=== PATIENT | female | born 1945 | race Caucasian/White ===

== ENCOUNTER 2017-08-07 22:28 | Emergency (ER) | payer OTHER ==
[~2017-08-07] VITALS: Ht 157.5 cm; Wt 72.6 kg
[~2017-08-07 22:28] MED LIST: BIOTIN5 M1 PO; CALCIUM 500 +1 EAC5 PO; ESCITALOPRAM OXA5 MG PO; FLUTICASONE PRO16 GM NASB; JARDIANCE25 M1 PO; LOSARTAN-HCTZ1 EAC2 PO; METFORMIN HCL500 M4 PO; METOPROLOL SUCC25 M1 PO; MULTIVITAMINS1 EAC8 PO; NORFLEX100 MG PO; SIMVASTATIN40 M1 PO; SYMBICORT 80-10.2 GM INH; SYNTHROID150 MCG PO; VITAMIN D1000 UNIT PO
[2017-08-07 22:34] VITALS: BP 156/76
--- NOTE | 2017-08-07 22:44 | ED SKIN/ALLERGY COMPLAINT ---
History of Present Illness General Chief Complaint: Animal/Insect Bite Stated Complaint: PT HAS POSSIBLE TICK ON THE BACK OF THE HEAD Source: patient Exam Limitations: no limitations Vital Signs & Intake/Output Vital Signs & Intake/Output Vital Signs Date Time Temp Pulse Resp B/P B/P Pulse O2 O2 Flow FiO2 Mean Ox Delivery Rate 08/07 2234 97.7 69 18 156/76 95 Room Air Allergies Coded Allergies: Sulfa (Sulfonamide Antibiotics) (Severe, NUMBNESS 08/26/15) Reconcile Medications Biotin 5 MG CAPSULE 1 CAP PO BID SUPPLEMENT (Reported) Budesonide/Formoterol Fumarate (Symbicort 80-4.5 Mcg Inhaler) 10.2 GM HFA.AER.AD 2 PUF INH BID BREATHING PROBLEMS (Reported) Calcium Carbonate/Vitamin D3 (Calcium 500 + D Tablet) 1 EACH TABLET 1 TAB PO BID SUPPLEMENT (Reported) Cholecalciferol (Vitamin D3) (Vitamin D) 1,000 UNIT TABLET 1 TAB PO DAILY SUPPLEMENT (Reported) Empagliflozin (Jardiance) 25 MG TABLET 1 TAB PO DAILY DIABETES (Reported) Escitalopram Oxalate 5 MG TABLET 1 TAB PO DAILY DEPRESSION (Reported) Fluticasone Propionate 16 GM SPRAY.SUSP 2 SPRAY NASB DAILY ALLERGIES ( Reported) Levothyroxine Sodium (Synthroid) 150 MCG TABLET 1 TAB PO DAILY AC THYROID ( Reported) Losartan/Hydrochlorothiazide (Losartan-Hctz 100-25 MG Tab) 1 EACH TABLET 1 TAB PO DAILY HEART (Reported) Metformin HCl (Metformin HCl ER) 500 MG TAB.ER.24H 1 TAB PO BID DIABETES ( Reported) Metoprolol Succinate 25 MG TAB.ER.24H 1 TAB PO DAILY HEART (Reported) Multivitamin (Multivitamins) 1 EACH CAPSULE 1 TAB PO DAILY SUPPLEMENT ( Reported) Simvastatin (Simvastatin*) 40 MG TABLET 1 TAB PO QPM CHOLESTEROL (Reported) Triage Note: PT TO TRIAGE STATING "I THINK I HAVE A TICK ON MY HEAD." PER PT THOUGHT IT WAS A SCAB, BUT SAID IT LOOKS LIKE A TICK. PT STATES SHE HAS 2 DOGS "SO IT'S POSSIBLE." Triage Nurses Notes Reviewed? yes Onset: Gradual Duration: day(s): (1) Timing: no prior history Severity: mild Location: HEAD Possible Factors: insect bite No Modifying Factors: none HPI: Patient is a 71-year-old female presenting to the emergency Department chief complaint of tick bite to scalp. Patient reports that she felt something on her scalp earlier today and her thought it looked like a scab. She knows that it increased in size throughout the day and he looked again and said I could take. Patient has 2 dogs. Denies any fevers or chills. No rashes. Denies any nausea vomiting chest pain shortness of breath or palpitations. No history of Lyme disease in the past. (Jade Guerin) Past History Travel History Traveled to [place] past 21 day No Medical History Any Pertinent Medical History? 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 No (Jade Guerin) Review of Systems Review of Systems Constitutional: Reports: no symptoms. Comments Review of systems: See HPI, All other systems negative. Constitutional, no chills fever or weight loss HEENT: No visual changes no sore throat no congestion Cardiovascular: No chest pain ,palpitation Skin, no jaundice no rashes Respiratory: No dyspnea cough sputum or hemoptysis GI: No nausea no vomiting Muscle skeletal: no back pain, no neck pain, Neurologic: No numbness no headaches Immunology: No splenectomy or history of AIDS (Jade Guerin) Physical Exam Physical Exam General Appearance: well developed/nourished, no apparent distress, alert, awake , comfortable Comments: Well-developed well-nourished person in no acute distress HEENT: Atraumatic, normocephalic. Engorged tick noted in the right parietal scalp. No surrounding erythema or edema. Neck: Normal inspection Respiratory: No respiratory distress. Neuro: Alert oriented x3 Skin: No appreciable rash on exposed skin, skin is warm and dry. Psych: Mood and affect is normal, memory and judgment is normal. (Jade Guerin) Progress Differential Diagnosis: lYME DISEASE, TICK BITE, CELLULITIS Plan of Care: Orders Procedure Date/time Status LYME TITRE 08/07 2241 Active Laboratory Tests 08/07/17 2303: Lyme Disease Antibody Pending Take removed with tweezers. Completely removed. Patient given a one-time dose of doxycycline because we don't know how long the tick was there. Patient asymptomatic. Lyme titer drawn, she will also follow up with her primary care physician in 4-6 weeks for repeat blood work. Patient nontoxic. Discussed with Dr. Rankin and he agrees with plan. (Jade Guerin) Departure Departure Time of Disposition: 2242 Disposition: HOME OR SELF CARE Condition: Stable Clinical Impression Primary Impression: Tick bite Qualifiers: Encounter type: initial encounter Qualified Code: W57.XXXA - Bitten or stung by nonvenomous insect and other nonvenomous arthropods, initial encounter Referrals: Arely PLUMMER,Jennifer Carroll (PCP/Family) Additional Instructions: Follow-up with your primary care physician. YOU WERE given a one-time dose of doxycycline. He may need repeat blood work and for 6 weeks if initial blood test is negative. Departure Forms: Customer Survey General Discharge Information (Jade Guerin) PA/[employer] SERVICE WORKER Co-Sign Statement Statement: ED Attending supervision documentation- [] I saw and evaluated the patient. I have also reviewed all the pertinent lab results and diagnostic results. I agree with the findings and the plan of care as documented in the PA's/[employer] SERVICE WORKER's documentation. [X] I have reviewed the ED Record and agree with the PA's/[employer] SERVICE WORKER's documentation. [] Additions or exceptions (if any) to the PAs/S[employer]ING [employer] SERVICE WORKER's note and plan are summarized below: [] (Klever PLUMMER,Lukas Alejandra)
== END 2017-08-07 23:35 ==
LOC: ERH 22:28
DX: S00.06XA Insect bite (nonvenomous) of scalp, initial encounter (principal); W57.XXXA Bitten or stung by nonvenomous insect and other nonvenomous arthropods, initial encounter; Y92.9 Unspecified place or not applicable; Y93.9 Activity, unspecified
CPT/HCPCS: 86618